=== PATIENT | male | born 1950 | race Caucasian/White ===

== ENCOUNTER 2018-07-24 06:02 | Day surgery (SDC) | payer MEDICARE, OTHER ==
[2018-07-24] MEDS ORDERED: PROPOFOL 200 MG/20 ML BOTTLE IV ONE (06:03)
[2018-07-24] MEDS ORDERED: ONDANSETRON 4 MG/2 ML VIAL IV ONE (06:03)
[2018-07-24] MEDS ORDERED: SEVOFLURANE 250 ML BOTTLE IH ONE (06:03)
[2018-07-24] MEDS ORDERED: LIDOCAINE-MPF 2% 5 ML VIAL MC ONE (06:03)
[2018-07-24] MEDS ORDERED: CEFAZOLIN 1 G VIAL MC ONE (06:03)
[2018-07-24] MEDS ORDERED: IV NORMAL SALINE 1000 ML BAG IV ONE (06:03)
[2018-07-24] MEDS ORDERED: EPHEDRINE SULFATE 50 MG/ML AMPUL MC ONE (06:03)
[2018-07-24] MEDS ORDERED: CEFAZOLIN 50 ML IV ONE (06:24)
[2018-07-24 06:41] LABS: BASOPHILS % (AUTO) 0.3 % (0.0-2.0); EOSINOPHILS # (AUTO) 0.2 K/uL (0.0-0.7); EOSINOPHILS % (AUTO) 3.3 % (0.0-7.0); HEMATOCRIT 33.6 % (36.7-47.1); LYMPHOCYTES # (AUTO) 1.4 K/uL (20.0-40.0); LYMPHOCYTES % (AUTO) 21.3 % (20.5-51.5); MEAN CORPUSCULAR HEMOGLOBIN 30.4 uug (23.8-33.4); MEAN CORPUSCULAR HGB CONC 33 g/dL (32.5-36.3); MEAN CORPUSCULAR VOLUME 92.7 fL (73.0-96.2); MONOCYTES # (AUTO) 0.6 K/uL (2.0-10.0); NEUTROPHILS # (AUTO) 4.3 K/uL (1.8-8.9); NEUTROPHILS % (AUTO) 66.1 % (38.5-71.5); PLATELET COUNT (AUTO) 130 K/uL (152-348); RED BLOOD CELL COUNT(AUTO) 3.63 MIL/uL (4.06-5.63); WHITE BLOOD COUNT (AUTO) 6.5 K/uL (3.6-10.2)
[2018-07-24 06:49] LABS: CREATININE 6.8 mg/dL (0.6-1.3)
[2018-07-24] MEDS ORDERED: FENTANYL CITRATE 100 MCG/2 ML AMPUL ONE (07:13)
[2018-07-24] MEDS ORDERED: POLYMYXIN B SULFATE 500,000 UNITS, BACITRACIN 50,000 UNITS, NORMAL SALINE 20 ML MC ONE ×3 (07:15)
[2018-07-24] MEDS ORDERED: LIDOCAINE HCL 1% 20 ML VIAL ONE (07:24)
== END 2018-07-24 11:45 | disposition home or self-care (01) ==
LOC: DS 06:02
PROVIDERS: ATTEND Podiatrist Foot & Ankle Surgery
DX: Z47.2 Encounter for removal of internal fixation device (principal); E11.610 Type 2 diabetes mellitus with diabetic neuropathic arthropathy; E11.22 Type 2 diabetes mellitus with diabetic chronic kidney disease; N18.6 End stage renal disease; I21.3 ST elevation (STEMI) myocardial infarction of unspecified site
CPT/HCPCS: 20694; 36415; 80048; 82962 ×2; 85025; 85730; J0690 ×2; J2405; J3010; J3490 ×4; A4649; A4663; J7030